=== PATIENT | female | born 1950 | race Caucasian/White ===

== ENCOUNTER → 2021-01-31 | Outpatient (CLI) | payer MEDICARE, MEDICAID | END | disposition home or self-care (01) | LOC: ROC 01-29 15:15 | PROVIDERS: ATTEND Radiology Radiation Oncology | DX: C79.31 Secondary malignant neoplasm of brain (principal) | CPT/HCPCS: G0463 ==

== ENCOUNTER 2021-03-21 08:00 | Outpatient (CLI) | payer MEDICARE, MEDICAID ==
[~2021-03-21 08:00] MED LIST: LORA-445 PO
== END 2021-03-21 23:59 | disposition home or self-care (01) ==
LOC: ROC 08:00
PROVIDERS: ATTEND Radiology Radiation Oncology
DX: Z08 Encounter for follow-up examination after completed treatment for malignant neoplasm (principal); Z85.841 Personal history of malignant neoplasm of brain
CPT/HCPCS: G0463